=== PATIENT | female | born 1960 | race Two or more races ===

== ENCOUNTER 2019-10-29 17:18 | Emergency (ER) | payer OTHER ==
[~2019-10-29] VITALS: Ht 157.5 cm; Wt 72.1 kg
[2019-10-29] MEDS ORDERED: CARDIZEM60 MG (17:32)
[2019-10-29] MEDS ORDERED: LIPITOR20 MG (17:33)
[2019-10-29] MEDS ORDERED: NEURONTIN300 MG (17:33)
[2019-10-29] MEDS ORDERED: AVAPRO75 MG (17:33)
[2019-10-29] MEDS ORDERED: FOLIC ACID0.8 M1 (17:33)
[2019-10-29] MEDS ORDERED: RAYOS1 MG (17:34)
[2019-10-29] MEDS ORDERED: PROTONIX20 MG (17:35)
[2019-10-29] MEDS ORDERED: VITAMINA D3 PO (17:36)
== END 2019-10-29 19:47 | disposition home or self-care (01) ==
LOC: ER 17:18
DX: K63.89 Other specified diseases of intestine (principal)